=== PATIENT | female | born 1935 | race Caucasian/White ===

== ENCOUNTER 2018-05-05 17:33 | Inpatient (IN) | payer OTHER ==
[2018-05-05] MEDS ORDERED: NA CHLORIDE 0.9% 1,000 ML ONE (19:17)
[2018-05-05] MEDS ORDERED: NA CHLORIDE 0.9% 500 ML ONE (19:17)
[2018-05-05 19:35] LABS: Absolute Lymphocytes (CBC) 2.1 K/uL (0.7-4.9); Absolute Monocytes 0.8 K/uL (0.1-1.3); Basophils % 0.8 % (0-1.3); Eosinophils % 1.8 % (0-4.4); Hematocrit 46.3 % (36.0-45.0); Lymphocytes % 23.1 % (15.3-44.8); MCH 30.6 pg (27.0-35.0); MCV 91.1 fL (80-100); MPV 8.5 fL (7.6-11.3); Monocytes % 8.9 % (3.3-12.3); RBC Red Blood Cell Count 5.09 M/uL (3.86-4.86)
[2018-05-05 19:44] LABS: Protime INR 1.14
--- NOTE | 2018-05-05 19:45 | RAD REPORT ---
EXAM DESCRIPTION: Evelia Single View05/05/2018 7:16 pm CLINICAL HISTORY: Chest pain COMPARISON: none FINDINGS: The left lung base is hazy. A large hiatal hernia is seen. The right lung appears clear. The heart is normal size IMPRESSION: The left base is hazy. This could be secondary to an infiltrate or part of the large hia milagro hernia. Lateral chest film is recommended
[2018-05-05 20:23] LABS: Albumin 3.2 g/dL (3.4-5.0); Bilirubin Total 0.6 mg/dL (0.2-1.0); Potassium 3.8 mmol/L (3.5-5.1); Protein, Total 7.8 g/dL (6.4-8.2)
[2018-05-05 20:58] LABS: Urine Blood 2+ (NEG); Urine Glucose 2+ (NEG); Urine Protein 1+ (NEG)
--- NOTE | 2018-05-05 21:29 | RAD REPORT ---
EXAM DESCRIPTION: CT - Abdomen Pelvis W Contrast - 05/05/2018 9:06 pm CLINICAL HISTORY: Abdominal pain COMPARISON: 2007 ultrasound TECHNIQUE: Computed axial tomography of the abdomen pelvis was obtained. 100 cc Isovue-300 was admin istered intravenously. Oral contrast was not requested which limits evaluation of bowel. All CT scans are performed using dose optimization technique as appropriate and may include automated exposure control or mA/KV adjustment according to patient size. FINDINGS: An aorto bi-iliac stent has been placed into an aortic aneurysm. Several hepatic cysts are seen. The spleen, adrenals and kidneys are unremarkable. A 35 cystic mass containing septations is present within the pancreatic head. The pancreatic duct is mildly dilated. Diverticula stem from the sigmoid colon. Mild stranding is seen within the adjacent fat. . The wall o f the sigmoid colon is thickened. Rectum is mildly distended. 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 Sigmoid wall thickening with diverticula and mild stranding within the adjacent fat probably indicati ng mild diverticulitis. An underlying sigmoid mass has a similar appearance. Followup is recommended
--- NOTE | 2018-05-05 21:37 | RAD REPORT ---
EXAM DESCRIPTION: Evelia Sevilla And Anisa (2 Views)05/05/2018 9:23 pm CLINICAL HISTORY: Abdominal pain COMPARISON: May 05, 2018 x-ray FINDINGS: The lungs appear clear of acute infiltrate. The left lateral base appears clear. A large hiatal hernia is seen. The heart is normal size IMPRESSION: No acute abnormalities displayed
--- NOTE | 2018-05-05 21:55 | ER ---
Nurse's Notes [facility] Name: Kassi Brcue Age: 82 yrs Sex: Female : 1935 Arrival Date: 05/05/2018 Time: 17:40 Bed 26 Private MD: Joann Tipton, Mesha Diagnosis: pancreatic mass. ;elevated lipase;colitis;fatigue Presentation: 05/05 18:03 Presenting complaint: Child states: Sent by shelter for evaluation of possible aj UTI. Patient started on Macrobid 2 weeks ago for possible UTI. Reports lethargy and decreased appetite. Transition of care: patient was not received from another setting of care. Onset of symptoms was April 20, 2018. Risk Assessment: Do you want to hurt yourself or someone else? Patient reports no desire to harm self or others. Initial Sepsis Screen: Does the patient meet any 2 criteria? No. Patient's initial sepsis screen is negative. Does the patient have a suspected source of infection? No. Patient's initial sepsis screen is negative. Care prior to arrival: None. 18:03 Method Of Arrival: Wheelchair aj 18:03 Acuity: ODILIA 3 aj Triage Assessment: 18:10 General: Appears in no apparent distress. comfortable, Behavior is calm, cooperative, aj appropriate for age. Pain: Denies pain. Neuro: Level of Consciousness is awake, alert, obeys commands, Oriented to person, place, time, situation, Appropriate for age. Respiratory: Airway is patent Respiratory effort is even, unlabored, Respiratory pattern is regular, symmetrical. GI: Abdomen is. Derm: Skin is intact, is healthy with good turgor, Skin is pink, warm \T\ dry. normal. Historical: - Allergies: 18:10 Codeine; aj 18:10 Sulfa (Sulfonamide Antibiotics); aj 18:10 PENICILLINS; aj 18:10 Adhesives; aj - Home Meds: 18:10 [place] Thyroid 30 mg Oral tab [Active]; turmeric root extract 500 mg oral cap 2 cap aj daily [Active]; cyanocobalamin (vitamin B-12) 1,000 mcg oral tab [Active]; omeprazole 40 mg Oral cpDR 1 cap once daily [Active]; gabapentin 100 mg oral cap 3 caps 3 times per day [Active]; aspirin 81 mg Oral TbEC 1 tab once daily [Active]; magnesium oxide 400 mg Oral tab [Active]; Nitrofurantoin Macrocrystal Oral [Active]; tramadol 50 mg Oral tab [Active]; lorazepam 1 mg Oral tab 1 tab 3 times per day [Active]; - PMHx: 18:10 Hypothyroidism; Dementia; GERD; aj - PSHx: 18:10 AAA repair; Hysterectomy; aj - Immunization history:: Adult Immunizations up to date. - Social history:: Smoking status: Patient/guardian denies using tobacco. - Ebola Screening: : Patient negative for fever greater than or equal to 101.5 degrees Fahrenheit, and additional compatible Ebola Virus Disease symptoms Patient denies exposure to infectious person Patient denies travel to an Ebola-affected area in the 21 days before illness onset No symptoms or risks identified at this time. Screenin:18 Abuse screen: Denies threats or abuse. Denies injuries from another. Abuse screen: mg2 Denies injuries from another. Nutritional screening: No deficits noted. Tuberculosis screening: No symptoms or risk factors identified. Fall Risk Assessment: 19:00 General: Appears in no apparent distress. comfortable, well groomed, well developed, kr2 Behavior is appropriate for age, anxious. Pain: Complains of pain in pelvis Pain currently is 5 out of 10 on a pain scale. Is continuous, Alleviated by nothing. Neuro: Level of Consciousness is awake, alert, obeys commands, Oriented to person, place, situation. Cardiovascular: Capillary refill < 3 seconds in bilateral fingers Patient's skin is warm and dry. Parent/caregiver reports patient has had fatigue. Respiratory: Airway is patent Respiratory effort is even, unlabored, Respiratory pattern is regular, symmetrical. GI: Abdomen is flat, non-distended, Bowel sounds present X 4 quads. Abd is soft and non tender X 4 quads. : Parent/caregiver report the patient having Patient recently treated with Macrobid for s/sx of UTI. No sample was obtained or tested and she has started to have loss of appetite and fatigue. EENT: Oral mucosa is moist. Derm: Skin is intact, is fragile, with poor turgor Skin is dry, Skin is pale, Skin temperature is warm. Musculoskeletal: Circulation, motion, and sensation intact. 21:00 Reassessment: Called to CT room due to patient becoming agitated and saying that she kr2 was hurting when her IV was being flushed. Assessed IV. Flushes well, patient screams at staff when being touched. Assisted radiology techs in positioning patient for CT. Patient would not be still and was easily agitated during CT. Patient was finally calmed and CT performed with contrast ordered. Patient had no complaints or adverse reactions when contrast was injected by radiology. Vital Signs: 18:10 BP 127 / 93; Pulse 98; Resp 16; Temp 98.4; Pulse Ox 97% on R/A; Weight 52.16 kg; Height aj 5 ft. 3 in. (160.02 cm); 20:09 BP 157 / 69; Pulse 87; Resp 17; Pulse Ox 99% on R/A; kr2 21:22 Pulse 78; Resp 18; Pulse Ox 100% ; Pain 0/10; mg2 22:43 BP 144 / 68; Pulse 74; Resp 17; Pulse Ox 99% ; kr2 18:10 Body Mass Index 20.37 (52.16 kg, 160.02 cm) aj 21:22 refused blood pressure mg2 ED Course: 17:40 Patient arrived in ED. rg4 17:40 Joann Tipton MD is Private Physician. rg4 18:05 Triage completed. aj 18:10 Arm band placed on right wrist. Patient placed in waiting room, Patient notified of wait time. 18:53 Katja Candelaria, PAM is Primary Nurse. kr2 19:00 Best Renee MD is Attending Physician. ps1 19:00 Patient has correct armband on for positive identification. Bed in low position. Call kr2 light in reach. Side rails up X2. Adult w/ patient. Pulse ox on. NIBP on. fit model on. Door closed. Warm blanket given. Pillow given. Head of bed elevated. 19:05 Katja Candelaria, RN is Primary Nurse. kr2 19:14 X-ray completed. Portable x-ray completed in exam room. Patient tolerated procedure mh1 well. 19:16 Chest Single View XRAY In Process Unspecified. EDMS 20:27 Inserted saline lock: 20 gauge in right wrist, using aseptic technique. Blood collected.mg2 20:[address] vm2 21:06 CT Abd/Pelvis - W/Contrast In Process Unspecified. EDMS 21:24 Chest Pa And Lat (2 Views) XRAY In Process Unspecified. EDMS 21:55 Jeyson Sahu MD is Hospitalizing Provider. ps1 22:45 Inserted saline lock: 24 gauge in left wrist, using aseptic technique. kr2 23:30 No provider procedures requiring assistance completed. Patient admitted, IV remains in kr2 place. Administered Medications: 19:53 Drug: NS 0.9% (30 ml/kg) 30 ml/kg Route: IV; Rate: bolus; Site: left antecubital; mg2 23:00 Follow up: Response: No adverse reaction; IV Status: Completed infusion kr2 Outcome: 21:55 Decision to Hospitalize by Provider. ps1 23:31 Condition: stable kr2 23:31 Instructed on the need for admit, Demonstrated understanding of instructions. 23:32 Admitted to Med/surg accompanied by tech, family with patient, via stretcher, room 422, kr2 with chart, Report called to Kirstin 23:33 Patient left the ED. kr2 Signatures: Dispatcher [employer] EDMS Jazmyn Chun RN RN Gloria Patel 1 [place] Wing 4 Renée Bray 2 Katja Candelaria RN RN kr2 Best Renee MD MD ps1 Alejandro Mg RN RN mg2 Corrections: (The following items were deleted from the chart) 22:44 19:00 General: Appears in no apparent distress. comfortable, well groomed, well kr2 developed, Behavior is calm, cooperative, appropriate for age, kr2 22:44 19:00 Neuro: Level of Consciousness is awake, alert, obeys commands, Oriented to kr2 person, place, time, situation, kr2
--- NOTE | 2018-05-05 21:56 | EDPHYS ---
Physician Documentation [facility] Name: Kassi Bruce Age: 82 yrs Sex: Female : 1935 Arrival Date: 05/05/2018 Time: 17:40 Bed 26 Private MD: Joann Tipton, A ED Physician Best Renee HPI: 05/05 19:44 This 82 yrs old Female presents to ER via Wheelchair with complaints of Won't ps1 Eat, Abdominal Pain, Urinary Problem. 19:44 patient here from assisted living. Patient of Dr. Tipton. Has UTI symptoms of fatigue and ps1 suprapubic pain. Hx of recent UTI that was treated with macrobid and not getting better and has decreased appetite fatigue and irritability. Afebrile. Sent in for evaluation of sepsis or intraabdominal etiology. . Historical: - Allergies: 18:10 Codeine; aj 18:10 Sulfa (Sulfonamide Antibiotics); aj 18:10 PENICILLINS; aj 18:10 Adhesives; aj - Home Meds: 18:10 [place] Thyroid 30 mg Oral tab [Active]; turmeric root extract 500 mg oral cap 2 cap aj daily [Active]; cyanocobalamin (vitamin B-12) 1,000 mcg oral tab [Active]; omeprazole 40 mg Oral cpDR 1 cap once daily [Active]; gabapentin 100 mg oral cap 3 caps 3 times per day [Active]; aspirin 81 mg Oral TbEC 1 tab once daily [Active]; magnesium oxide 400 mg Oral tab [Active]; Nitrofurantoin Macrocrystal Oral [Active]; tramadol 50 mg Oral tab [Active]; lorazepam 1 mg Oral tab 1 tab 3 times per day [Active]; - PMHx: 18:10 Hypothyroidism; Dementia; GERD; aj - PSHx: 18:10 AAA repair; Hysterectomy; aj - Immunization history:: Adult Immunizations up to date. - Social history:: Smoking status: Patient/guardian denies using tobacco. - Ebola Screening: : Patient negative for fever greater than or equal to 101.5 degrees Fahrenheit, and additional compatible Ebola Virus Disease symptoms Patient denies exposure to infectious person Patient denies travel to an Ebola-affected area in the 21 days before illness onset No symptoms or risks identified at this time. ROS: 19:44 Positive for urinary symptoms, pelvic pain, urinary frequency, foul smelling urine. ps1 19:44 ENT: Negative for injury, pain, and discharge, Neck: Negative for injury, pain, and swelling, Cardiovascular: Negative for chest pain, palpitations, and edema, Respiratory: Negative for shortness of breath, cough, wheezing, and pleuritic chest pain, MS/Extremity: Negative for injury and deformity, Skin: Negative for injury, rash, and discoloration. 19:44 Neuro: Negative for headache, weakness, numbness, tingling, and seizure. 19:44 Constitutional: Positive for chills, fatigue, poor PO intake. 19:44 Abdomen/GI: Positive for suprapubic paiun. 19:44 Neuro: Exam: 19:44 Constitutional: This is a well developed, well nourished patient who is awake, alert, ps1 and in no acute distress. Head/Face: Normocephalic, atraumatic. Eyes: Pupils equal round and reactive to light, extra-ocular motions intact. Lids and lashes normal. Conjunctiva and sclera are non-icteric and not injected. Chest/axilla: Normal chest wall appearance and motion. Nontender with no deformity. No lesions are appreciated. Cardiovascular: Regular rate and rhythm. No gallops, murmurs, or rubs. Normal PMI, no JVD. No pulse deficits. Respiratory: Lungs have equal breath sounds bilaterally, clear to auscultation and percussion. No rales, rhonchi or wheezes noted. No increased work of breathing, no retractions or nasal flaring. 19:44 MS/ Extremity: Pulses equal, no cyanosis. Neurovascular intact. Full, normal range of motion. Neuro: Awake and alert, GCS 15, oriented to person, place, time, and situation. Cranial nerves II-XII grossly intact. Sensory grossly intact. 19:44 Abdomen/GI: Inspection: abdomen appears normal, Palpation: mild abdominal tenderness, in the suprapubic area. Vital Signs: 18:10 BP 127 / 93; Pulse 98; Resp 16; Temp 98.4; Pulse Ox 97% on R/A; Weight 52.16 kg; Height aj 5 ft. 3 in. (160.02 cm); 20:09 BP 157 / 69; Pulse 87; Resp 17; Pulse Ox 99% on R/A; kr2 21:22 Pulse 78; Resp 18; Pulse Ox 100% ; Pain 0/10; mg2 22:43 BP 144 / 68; Pulse 74; Resp 17; Pulse Ox 99% ; kr2 18:10 Body Mass Index 20.37 (52.16 kg, 160.02 cm) aj 21:22 refused blood pressure mg2 MDM: 19:48 Patient medically screened. ps1 21:55 Data reviewed: vital signs, nurses notes, lab test result(s), radiologic studies, CT ps1 scan, and as a result, I will admit patient. ED course: new pancreatic mass and colitis. Will admit for concomitant medical care while evaluating neoplastic process. . 05/05 19:03 Order name: Blood Culture Adult (2) ps1 05/05 19:03 Order name: CBC with Diff; Complete Time: 19:48 ps1 05/05 19:03 Order name: Lactate; Complete Time: 19:57 ps1 05/05 19:03 Order name: Lipase; Complete Time: 20:39 ps1 05/05 19:03 Order name: Protime (+inr); Complete Time: 19:48 ps1 05/05 19:03 Order name: Troponin (emerg Dept Use Only); Complete Time: 19:57 ps1 05/05 19:03 Order name: Chest Single View XRAY; Complete Time: 19:48 ps1 05/05 19:03 Order name: Accucheck; Complete Time: 19:53 ps1 05/05 19:03 Order name: Cardiac monitoring; Complete Time: 19:07 ps1 05/05 19:03 Order name: CMP; Complete Time: 20:39 ps1 05/05 19:49 Order name: Chest Pa And Lat (2 Views) XRAY; Complete Time: 21:43 ps1 05/05 20:11 Order name: Urine Dipstick--Ancillary (enter results); Complete Time: 21:02 ms 05/05 20:40 Order name: CT Abd/Pelvis - W/Contrast; Complete Time: 21:34 ps1 05/05 19:03 Order name: EKG - Nurse/Tech; Complete Time: 19:54 ps1 05/05 19:03 Order name: IV Saline Lock - Large Bore; Complete Time: 19:54 ps1 05/05 19:03 Order name: Labs collected and sent; Complete Time: 19:54 ps1 05/05 19:03 Order name: O2 Per Protocol; Complete Time: 19:06 ps1 05/05 19:03 Order name: O2 Sat Monitoring; Complete Time: 19:06 ps1 05/05 19:03 Order name: Urine Dipstick-Ancillary (obtain specimen); Complete Time: 19:54 ps1 05/05 20:40 Order name: NPO; Complete Time: 21:25 ps1 Administered Medications: 19:53 Drug: NS 0.9% (30 ml/kg) 30 ml/kg Route: IV; Rate: bolus; Site: left antecubital; mg2 23:00 Follow up: Response: No adverse reaction; IV Status: Completed infusion kr2 Disposition: 05/05/18 21:55 Hospitalization ordered by Jeyson Sahu for Inpatient Admission. Preliminary diagnosis are pancreatic mass. , elevated lipase, colitis, fatigue. - Bed requested for Telemetry/MedSurg (Inpatient). - Status is Inpatient Admission. kr2 - Condition is Stable. - Problem is new. - Symptoms are unchanged. UTI on Admission? No Signatures: Dispatcher [employer] EDMS Gloria Cabrera RN RN Jazmyn Chun RN RN Katja Candelaria RN RN kr2 Best Renee MD MD ps1 Alejandro Mg RN RN mg2 Corrections: (The following items were deleted from the chart) 22:09 21:55 Hospitalization Ordered by Jeyson Sahu MD for Inpatient Admission. Preliminary diagnosis is pancreatic mass. ; elevated lipase; colitis; fatigue. Bed requested for Telemetry/MedSurg (Inpatient). Status is Inpatient Admission. Condition is Stable. Problem is new. Symptoms are unchanged. UTI on Admission? No. ps1 23:33 22:09 05/05/2018 21:55 Hospitalization Ordered by Jeyson Sahu MD for Inpatient kr2 Admission. Preliminary diagnosis is pancreatic mass. ; elevated lipase; colitis; fatigue. Bed requested for Telemetry/MedSurg (Inpatient). Status is Inpatient Admission. Condition is Stable. Problem is new. Symptoms are unchanged. UTI on Admission? No. mw
[2018-05-05] MEDS ORDERED: LORazepam 2 MG/ML VIAL ONE (22:01)
--- NOTE | 2018-05-05 22:11 | P.HP ---
Certification for Inpatient Patient admitted to: Inpatient With expected LOS: >2 Midnights Practitioner: I am a practitioner with admitting privileges, knowledge of patient current condition, hospital course, and medical plan of care. Services: Services provided to patient in accordance with Admission requirements found in Title 42 Section 412.3 of the Code of Federal Regulations Patient History Date of Service: 05/05/18 Reason for admission: pancreatitis, diverticulitis History of Present Illness: Ms Bruce is an 82 years old woman with history of Dementia, Hypothyroidism , GERD, who is a resident of a shelter, start about 2 weeks ago with abdominal pain, lethargy, and loss of appetite. She was started on empiric Nitrofurantoine for UTI. No history of fever. The patient is confused, slightly more than her baseline according to family members, and she is not able to provide further history. The patient has lost about 7 lb in the last 2 weeks. Lab work in ED remarkable for normal WBC count, elevated lipase 3013. Home medications list reviewed: Yes - Past Medical/Surgical History -: hypothyroidism -: GERD -: Dementia -: AAA repair -: Hysterectomy - Family History Family History: Reviewed- Non-Contributory - Social History Smoking Status: Current every day smoker Counseled patient to stop smoking for: less than 10 minutes Smoking therapy provided: Yes Patient receptive to therapy: Yes Alcohol use: No CD- Drugs: No Place of Residence: Group Home Review of Systems 10-point ROS is otherwise unremarkable Physical Examination - Physical Exam General: Alert, In no apparent distress, Demented, Confused HEENT: Atraumatic, PERRLA, Mucous membr. moist/pink, EOMI, Sclerae nonicteric Neck: Supple, 2+ carotid pulse no bruit, No LAD, Without JVD or thyroid abnormality Respiratory: Clear to auscultation bilaterally, Normal air movement Cardiovascular: Normal S1 S2, No gallops Gastrointestinal: Normal bowel sounds, Tenderness (diffuse) Musculoskeletal: No tenderness Integumentary: No rashes Neurological: Normal speech, Normal strength at 5/5 x4 extr, Normal tone, Normal affect, Dementia Lymphatics: No axilla or inguinal lymphadenopathy - Studies Laboratory Data (last 24 hrs) 05/05/18 19:00: PT 13.5 H, INR 1.14 05/05/18 19:00: Sodium 140, Potassium 3.8, BUN 19 H, Creatinine 0.90, Glucose 105, Total Bilirubin 0.6, AST 33, ALT 18, Alkaline Phosphatase 118 H, Lipase 3013 H 05/05/18 19:00: WBC 9.1, Hgb 15.6 H, Hct 46.3 H, Plt Count 292 Assessment and Plan - Problems (Diagnosis) (1) Pancreatitis Current Visit: Yes Status: Acute Qualifiers: Chronicity: acute Pancreatitis type: unspecified pancreatitis type Acute pancreatitis complication: unspecified Qualified Code(s): K85.90 - Acute pancreatitis without necrosis or infection, unspecified (2) Pancreatic cyst Current Visit: Yes Status: Acute (3) Diverticulitis Current Visit: Yes Status: Acute - Plan The patient will be admitted to the hospital due to possible pancreatitis and diverticulitis. CT abd/pelivs consitent with pancreatic head cyst concerning for malignancy and sigmoid inflammation concerning for diverticulitis vs malignancy. Will order IV fluids, keep her NPO, start empiric antibiotic, consult Dr Wright for further recommendations. - Advance Directives Does patient have a Living Will: No Does patient have a Durable POA for Healthcare: No - Code Status/Comfort Care Code Status Assessed: Yes Code Status: Do Not Resuscitate
[2018-05-05] MEDS ORDERED: LORazepam 2 MG/ML VIAL IV ONE (22:20)
[2018-05-05] MEDS ORDERED: ONDANSETRON 4 MG/2 ML VIAL IV PRN (22:43)
[2018-05-06] MEDS: NA CHLORIDE 0.9% 1,000 ML IV SCH ×3 (00:28→18:55)
[2018-05-06] MEDS: METRONIDAZOLE 500mg IVPB 500 MG/100 ML BAG IV SCH ×3 (00:34→17:01)
[2018-05-06 02:46] VITALS: BMI 20.3
[2018-05-06] MEDS: CIPROFLOXACIN 400mg IV 400 MG/200 ML BAG IV SCH ×2 (09:27→20:53)
[2018-05-06 11:39] LABS: Absolute Lymphocytes (CBC) 1.4 K/uL (0.7-4.9); Absolute Monocytes 0.6 K/uL (0.1-1.3); Absolute Neutrophil 4.6 K/uL (1.8-8.0); Basophils % 0.9 % (0-1.3); Eosinophils % 5.4 % (0-4.4); Hematocrit 38.5 % (36.0-45.0); Lymphocytes % 20.1 % (15.3-44.8); MCH 30.5 pg (27.0-35.0); MCV 91.7 fL (80-100); MPV 8.3 fL (7.6-11.3); Monocytes % 8.2 % (3.3-12.3); RBC Red Blood Cell Count 4.19 M/uL (3.86-4.86)
[2018-05-06 11:57] LABS: ALT/SGPT 14 U/L (12-78); AST/SGOT 18 U/L (15-37); Albumin 2.3 g/dL (3.4-5.0); Alkaline Phosphatase 83 U/L (45-117); BUN Blood Urea Nitrogen 12 mg/dL (7-18); Bicarbonate 22 mmol/L (21-32); Bilirubin Total 0.4 mg/dL (0.2-1.0); Glucose Level 96 mg/dL (74-106); Lipase 4010 U/L (73-393); Protein, Total 5.7 g/dL (6.4-8.2); Sodium Level 144 mmol/L (136-145)
--- NOTE | 2018-05-06 12:08 | EKG ---
Test Date: 2018-05-05 Test Time: 19:32:26 Hospital Fellow: MG MEASUREMENT RESULTS: Intervals: Rate: 92 CT: 170 QRSD: 80 QT: 348 QTc: 430 [place]: P: 77 CT: 170 QRS: 26 T: 1 INTERPRETIVE STATEMENTS: Normal sinus rhythm Anteroseptal infarct, age undetermined Abnormal ECG No previous ECG available for comparison Electronically Signed On 05-06-18 12:08:03 CDT by Nabil Ramesh
[2018-05-06] MEDS ORDERED: MELATONIN 5 MG TABLET PO PRN (12:43)
[2018-05-06] MEDS: TRAMADOL HCL 50 MG TAB PO PRN (15:18)
--- NOTE | 2018-05-06 15:18 | CON ---
Date of Consultation: 05/06/2018 An 82-year-old female, Dr. Santacruz, 422. Reason For Consultation: Abdominal pain, pancreatitis, and pancreatic mass. History Of Present Illness: Ms. Bruce is an 82-year-old female, who has a very poor historian, got admitted to the hospital yesterday. CT scan showed that she had 35 mm pancreatic septated mass. In addition to that, her lipase level is 4010, and I have been consulted. The patient does not give any history whatsoever, though history is taken from her daughter. Sanjanai ng to the daughter, she has not been doing well and she lives in an assisted facility and failed to t hrive for the last couple of days. As a result, at first UTI was suspected, however, still it did no t improve her condition, as a result she was sent to the hospital and in the hospital further workup revealed that she not only has pancreatitis, but also a pancreatic mass as described above. As far as the patient is concerned, she is asking for smoking. There is no history of hematemesis, m ellie, hematochezia, odynophagia, dysphagia. According to the daughter, the patient complained of in termittent abdominal pain in the lower quadrant as well as epigastric area. Today is more of epigast tamica area. Past Medical History: Hypertension. Past Surgical History: Unknown. Family History: No gastrointestinal malignancy in the family. Social History: Positive tobacco. No active alcohol at this time. Psychiatric History: Questionable history of dementia. Allergies: REVIEWED IN THE CHART. Medications: Reviewed in the chart. Review of Systems: Details of review of systems is impossible to obtain because the patient does not give any history. However according to the daughter, she has been doing well until last month when she has failed to th rive and lost some weight. Further systemic and systematic problems are none known to her. Physical Examination: General: Elderly female, does not cooperate, does not make eye contact, however awake. Does not vol unteer any answer. She appears to be reasonably comfortable. Hemodynamic and respiratory profile wi thin normal range. HEENT: Atraumatic, normocephalic. Slight pallor. No icterus. Evidence of bitemporal wasting. She does not open her mouth to examine. Neck: Supple. Trachea central in position. Does not swallow. CHEST: Does not cooperate. Air exchange is limited as a result. Cardiac: S1, S2 is accentuated. No S3, no S4. Abdomen: Soft, however, tenderness in the epigastrium and the patient removes my hand forcibly, ther efore I cannot examine her hepatomegaly, splenomegaly. Bowel sounds seems to be fine. Rebound tende rness cannot be examined due to above. Neurologic: She is awake. Alertness and orientation could not be judged, although she is moving all parts of extremity and thrashing. Dermatologic: Decreased skin turgor throughout the exposed area. Diagnostic Data: Reviewed. CT scan as elaborated above. Hemoglobin and hematocrit [address] scan some sigmoid diverticulosis with possible colitis noted. Impression, Plan, And Recommendation: Ms. Bruce is an 82-year-old female with acute pancreatiti s, abdominal pain, lack of cooperation, poor historian, sigmoid diverticulosis, and pancreatic mass a s described above. At this time, due to acute pancreatitis it is really hard to say whether this is pancreatic pseudocys t versus a primary pancreatic mass. As the condition improves and treatment for her pancreatitis con tinues it maybe further clear. For the time being, given above situation and given her history, we w ill have to treat her as if she has acute pancreatitis with IV fluid antibiotic. She also appears to be somewhat hemoconcentrated, may need more careful fluid. Ultimately her workup may also include E [employer] SPECIALIST and further scanning to the evolution. At this time, the pancreatic mass is septated, however, I am unable to say clearly whether it is a ps eudocyst versus de narda mass. Only perspective follow up will give us any idea. Also the patient's daughter does not seem to be in favor of being overly aggressive at this time. Therefore, we will co ntinue to medically manage her, follow her and future depends on above. Overall we are dealing with a complicated case for multiple viewpoint. KENIA/MEKA Voice ID: [id number] Report ID: [id number]
[2018-05-06] MEDS: NICOTINE 21 MG/PAT TD SCH (15:23)
[2018-05-06] MEDS: LORAZEPAM 1 MG TABLET PO PRN (16:57)
[2018-05-06] MEDS ORDERED: POTASSIUM CL SA 10 MEQ TAB PO ONE (19:00)
--- NOTE | 2018-05-06 19:03 | PN ---
Date of Progress Note: 05/06/2018 Subjective: The patient seen and examined, chart reviewed, and case discussed with RN. The patient's daughter at the bedside and all questions answered. Treatment plan explained. Case also discussed with Dr. Anton. The patient is somewhat agitated. Review of Systems: Limited due to the patient's medical condition. Medications: List reviewed. Objective: Vital Signs: Temperature 97.9, heart rate 75, blood pressure 115/67 , respirations 18, and O2 94% on room air. General: Asleep, but arousable, elderly female, ill-appearing, frail, BMI 20. CV: S1, S2. No murmurs. Peripheral pulses present. Respiratory: Clear to auscultation bilaterally. No wheezing. Gastrointestinal: Abdomen is soft, nontender, nondistended. Positive bowel sounds. Extremities: No clubbing, cyanosis, or edema. Neuro: Nonfocal. The patient moves all 4 extremities. Speech is normal. Laboratory Data: Sodium 144, potassium 3, chloride 113, CO2 22, BUN 12, creatinine 0.5, glucose 96, calcium 8.3, albumin 2.3, lipase 4010. WBC 7, H and H 12.8, 38.5, and platelets 211. Blood cultures pending. CT abdomen shows 35 mm cystic mass within the pancreatic head containing septations, probably represents neoplasm. Sigmoid wall thickening with diverticula and mild stranding within the adjacent fat, probably indicating mild diverticulitis. Underlying sigmoid mass has similar appearance. Followup is recommended. Assessment And Plan: An 82-year-old female with; 1. Pancreatitis, unclear etiology. No necrosis. Lipase levels increasing. We will continue with IV fluids, n.p.o. status. Dr. Wright with GI has been consulted. Appreciate his input. 2. Pancreatic cyst versus mass, possibly a neoplasm. We will check CA 19-9. I spoke with Dr. Anton, who recommends tissue diagnosis first after the pancreatitis settles down and then she will make recommendations regarding possible prognosis and treatment options. Dr. Wright with GI may possibly plan ERCP. If that is the case, he will be able to obtain tissue biopsy. 3. Diverticulitis. We will continue with IV antibiotics and IV fluids. N.p.o. at this time. 4. Hypothyroidism. 5. Gastroesophageal reflux disease. Continue PPI. 6. Alzheimer's dementia, early onset, without behavioral disturbance. 7. Status post abdominal aortic aneurysm repair. 8. Gastrointestinal and deep venous thrombosis prophylaxis addressed. Code status: DNR. Daughter is MANUEL. /MEKA Voice ID: [id number] Report ID: [id number] MTDD
[2018-05-06] MEDS: GABAPENTIN 100 MG CAP PO SCH (20:53)
[2018-05-07] MEDS: METRONIDAZOLE 500mg IVPB 500 MG/100 ML BAG IV SCH ×3 (00:53→17:00)
[2018-05-07 03:46] LABS: ALT/SGPT 13 U/L (12-78); AST/SGOT 15 U/L (15-37); Albumin 2.3 g/dL (3.4-5.0); Alkaline Phosphatase 79 U/L (45-117); BUN Blood Urea Nitrogen 8 mg/dL (7-18); Bicarbonate 24 mmol/L (21-32); Bilirubin Total 0.4 mg/dL (0.2-1.0); Glucose Level 86 mg/dL (74-106); Lipase 2456 U/L (73-393); Potassium 3.1 mmol/L (3.5-5.1); Protein, Total 5.5 g/dL (6.4-8.2); Sodium Level 145 mmol/L (136-145)
[2018-05-07 03:57] LABS: Amylase Level 412 U/L (25-115)
[2018-05-07] MEDS: NA CHLORIDE 0.9% 1,000 ML IV SCH ×2 (05:43→14:43)
[2018-05-07] MEDS: THYROID 30 MG TAB PO SCH (05:43)
[2018-05-07] MEDS: PANTOPRAZOLE 40MG TABLET PO SCH (05:43)
[2018-05-07] MEDS ORDERED: POLYETHYL GLY 3350 17 GM/DOSE PO PRN (09:00)
[2018-05-07] MEDS: CIPROFLOXACIN 400mg IV 400 MG/200 ML BAG IV SCH (09:00)
[2018-05-07] MEDS: TRAMADOL HCL 50 MG TAB PO PRN ×2 (09:28→20:05)
[2018-05-07] MEDS: GABAPENTIN 100 MG CAP PO SCH ×2 (09:28→20:04)
[2018-05-07] MEDS: NICOTINE 21 MG/PAT TD SCH (09:28)
[2018-05-07] MEDS ORDERED: POTASSIUM CL SA 10 MEQ TAB PO ONE (10:05)
--- NOTE | 2018-05-07 15:19 | PN ---
Date of Progress Note: 05/07/2018 Subjective: The patient seen and examined, chart reviewed, and case discussed with RN and Dr. Anton. The patient still very agitated, does not wish to be examined, however, was more cooperative than ye day. Denies any pain. Review of Systems: Negative except as above. Medications: Reviewed. Objective: Vital Signs: Temperature 97.1, heart rate 79, blood pressure 154/69, respirations 18, an d O2 sats 98% on room air. General: Awake, alert, oriented x2, in some mild distress. Elderly female, frail, cachectic. BMI 2 0. CV: S1, S2. No murmurs. Peripheral pulses present. Respiratory: Moving air well bilaterally. No wheezing. Gastrointestinal: Abdomen is soft. Mild tenderness to palpation. No guarding or rigidity. No palp able masses. Extremities: No clubbing, cyanosis, or edema. Neurologic: Nonfocal. Laboratory Data: Sodium 145, potassium 3.1, chloride 113, CO2 24, BUN 8, creatinine 0.5, glucose 86, calcium 8.2, total bilirubin 0.4, AST 15, ALT 13, albumin 2.3, amylase 412, and lipase 2456. CA 19- 9 pending. Blood cultures, no growth to date. Assessment And Plan: An 82-year-old female with; 1.Pancreatitis, acute, no necrosis. Lipase level is improving. Continue with IV fluids, n.p.o. Ap preciate Dr. Wright's input. 2.Pancreatic cyst versus possible mass. CA 19-[address] Anton is on the case. The patient will need tissue diagnosis prior to any recommendations. However, for now we will treat the pancreat itis and once that settles down, may have ERCP done by Dr. Wright for possible tissue biopsy. 3.Diverticulitis. Continue IV antibiotics and IV fluids. 4.Hypothyroidism. 5.Gastroesophageal reflux disease. We will continue PPI. 6.Alzheimer's dementia, early onset without behavioral disturbance. 7.Status post abdominal aortic aneurysm repair. 8.Gastrointestinal and deep venous thrombosis prophylaxis addressed. 9.Code status: Do not resuscitate. SA/MODL Voice ID: [id number] Report ID: [id number]
[2018-05-07] MEDS: CIPROFLOXACIN HCL 500 MG TAB PO SCH ×2 (15:30→20:04)
[2018-05-07 17:21] LABS: Magnesium 1.9 mg/dL (1.8-2.4); Potassium 3.6 mmol/L (3.5-5.1)
[2018-05-07] MEDS: metroNIDAZOLE 500 MG TABLET PO SCH (20:04)
[2018-05-07] MEDS: ENSURE HIGH PROTEIN 237 ML CAN PO SCH (20:04)
[2018-05-07] MEDS: LORAZEPAM 1 MG TABLET PO PRN (20:05)
[2018-05-07] MEDS ORDERED: POTASSIUM 25 MEQ EFFERV TAB PO ONE (21:00)
[2018-05-08] MEDS: NA CHLORIDE 0.9% 1,000 ML IV SCH (00:23)
[2018-05-08] MEDS: METRONIDAZOLE 500mg IVPB 500 MG/100 ML BAG IV SCH ×2 (00:23→09:00)
[2018-05-08] MEDS: THYROID 30 MG TAB PO SCH (05:01)
[2018-05-08] MEDS: PANTOPRAZOLE 40MG TABLET PO SCH (05:01)
[2018-05-08 06:18] LABS: ALT/SGPT 15 U/L (12-78); AST/SGOT 19 U/L (15-37); Albumin 2.4 g/dL (3.4-5.0); Alkaline Phosphatase 87 U/L (45-117); BUN Blood Urea Nitrogen 6 mg/dL (7-18); Bicarbonate 24 mmol/L (21-32); Bilirubin Total 0.4 mg/dL (0.2-1.0); Glucose Level 94 mg/dL (74-106); Lipase 2138 U/L (73-393); Potassium 3.5 mmol/L (3.5-5.1); Protein, Total 5.8 g/dL (6.4-8.2); Sodium Level 142 mmol/L (136-145)
[2018-05-08 06:22] LABS: Amylase Level 346 U/L (25-115)
[2018-05-08 08:04] VITALS: BP 149/78; TEMP 97.5
[2018-05-08] MEDS ORDERED: POTASSIUM CL SA 10 MEQ TAB PO ONE (09:00)
[2018-05-08] MEDS: metroNIDAZOLE 500 MG TABLET PO SCH (09:39)
[2018-05-08] MEDS: GABAPENTIN 100 MG CAP PO SCH (09:39)
[2018-05-08] MEDS: CIPROFLOXACIN HCL 500 MG TAB PO SCH (09:39)
[2018-05-08] MEDS: NICOTINE 21 MG/PAT TD SCH (09:40)
[2018-05-08] MEDS: ENSURE HIGH PROTEIN 237 ML CAN PO SCH (09:43)
[2018-05-08 12:04] VITALS: O2SAT 97
--- NOTE | 2018-05-08 12:35 | DS ---
Date of Discharge: 05/08/2018 Consultants: BENITA, Dr. Wright and Dr. Anton with Oncology. Admitting Diagnoses: 1.Pancreatitis without necrosis or infection. 2.Pancreatic cyst versus mass. Discharge Diagnoses: 1.Acute pancreatitis without necrosis, improved. 2.Pancreatic cyst versus mass. The patient to follow up with Dr. Anton, Oncology and GI for further workup including tissue diagnosis once pancreatitis has settled down. 3.Diverticulitis, improving. 4.Hypothyroidism, stable. 5.Gastroesophageal reflux disease. PPI. 6.Alzheimer dementia, early onset without behavioral disturbance. 7.Status post abdominal aortic aneurysm repair. Hospital Course: The patient is an 82-year-old female, comes in with abdominal pain, found to have p ancreatitis and diverticulitis. CT scan also showed possible mass on the pancreatic head, 35 mm cyst ic mass possibly representing neoplasm along with diverticulitis. The patient was started on IV anti biotics, IV fluids, kept n.p.o. GI was consulted regarding the mass. The patient is do not resuscit ate. Has dementia. Has poor quality of life. Daughter who is a medical power of injection specialist did not w hugo to be aggressive and did not wish the patient to go through aggressive chemotherapy radiation artemio carlos and Dr. Anton with Oncology was consulted. The patient would need a tissue diagnosis prior to an y prognostication or treatment options; however, due to pancreatitis, GI recommended treating pancrea titis and diverticulitis initially prior to any sort of procedure such as ERCP to do a tissue diagnos is. Family agreed with the plan. The patient did well over the course of the hospital stay. Her li pase level improved. Amylase level also trended down. CA-19-9 was obtained, however, still pending. Her electrolytes were corrected. The patient's white count remained normal. She was able to neal ate a diet. Her blood cultures remained negative. The patient was more awake and alert, did not com plain of any abdominal pain. The patient was therefore cleared for discharge and was sent home in a stable condition. Activity: Fall precautions. Diet: As planned. Followup: Follow up with primary care physician in 2-3 days. Follow up with BENITA, Dr. Wright in 2 weeks . Follow up with oncologist, Dr. Anton in 2 weeks. Return to ER for worsening condition. Medications: As per medication reconciliation list. Physical Examination: Vital Signs: Stable. Afebrile. General: Awake, alert, oriented, no acute distress. CV: S1, S2. No murmurs. Respiratory: Moving air well bilaterally. Abdomen: Soft, nontender, nondistended. Positive bowel sounds. Extremities: No clubbing, cyanosis, edema. Neurologic: Nonfocal. Total time spent discharging the patient was 39 minutes. /MEKA Voice ID: [id number] Report ID: [id number]
== END 2018-05-08 10:30 | DRG 391 ==
LOC: ER 17:33 → 4TH 21:55
PROVIDERS: ADMIT Internal Medicine; ATTEND Family Medicine
DX: K57.32 Diverticulitis of large intestine without perforation or abscess without bleeding (principal); K85.90 Acute pancreatitis without necrosis or infection, unspecified; K86.2 Cyst of pancreas; E03.9 Hypothyroidism, unspecified; K21.9 Gastro-esophageal reflux disease without esophagitis; G30.0 Alzheimer's disease with early onset; F02.80 Dementia in other diseases classified elsewhere, unspecified severity, without behavioral disturbance, psychotic disturbance, mood disturbance, and anxiety; Z66 Do not resuscitate; F17.200 Nicotine dependence, unspecified, uncomplicated; D37.8 Neoplasm of uncertain behavior of other specified digestive organs; I10 Essential (primary) hypertension; Z88.5 Allergy status to narcotic agent; Z88.0 Allergy status to penicillin; Z88.2 Allergy status to sulfonamides; Z91.048 Other nonmedicinal substance allergy status; Z79.82 Long term (current) use of aspirin
CPT/HCPCS: 36415; 71045; 71046; 74177; 80053; 81003; 82150; 82962; 83605; 83690; 83735; 84132; 84484; 85025; 85610; 86301; 87040; 93005; 96365; 96366; 99285; J0744; J7030; Q9967